=== PATIENT | female | born 1965 | race Caucasian/White ===

== ENCOUNTER → 2016-11-01 | Outpatient (CLI) | payer BC | END | disposition home or self-care (01) | LOC: NUC 08:09 | DX: R10.13 Epigastric pain (principal) | CPT/HCPCS: 78264; A9541 ==

== ENCOUNTER 2017-08-07 16:49 | Emergency (ER) | payer BC ==
[~2017-08-07] VITALS: Ht 162.6 cm; Wt 106.4 kg
[2017-08-07 18:26] LABS: HEMATOCRIT 43.3 % (36.0-46.0); HEMOGLOBIN 14.7 G/DL (11.9-15.5); MCH 28.9 PG (29.0-34.0); MCHC 33.9 G/DL (30.0-36.0); MCV 85.1 FL (83-99); PLATELET COUNT 77 K/uL (156-360); RBC DIS.WIDTH-CV 13.8 % (11.8-14.6); RBC DIS.WIDTH-SD 42.5 % (39-53); RED BLOOD COUNT 5.09 M/uL (3.80-5.20); WHITE BLOOD COUNT 3.9 K/uL (4.1-10.2)
[2017-08-07 18:40] LABS: CHLORIDE 112 mEq/L (99-109); SODIUM 141 mEq/L (136-147)
[2017-08-07 18:41] LABS: GLUCOSE 211 mg/dL (70-99)
[2017-08-07 18:45] LABS: CREATININE 0.7 mg/dL (0.6-1.3); GFR ESTIMATE (CALCULATED) > 59 mL/min/
[2017-08-07 18:46] LABS: UREA NITROGEN (BUN) 13 mg/dL (9-23)
[2017-08-07 21:01] LABS: THYROTROPIN (TSH) 0.03 MIU/L (0.4-5.5)
[2017-08-07 22:45] VITALS: BP 133/66
== END 2017-08-07 23:22 | disposition home or self-care (01) ==
LOC: EME 16:49
DX: R00.1 Bradycardia, unspecified (principal); E03.9 Hypothyroidism, unspecified; R10.9 Unspecified abdominal pain; R42 Dizziness and giddiness
CPT/HCPCS: 71046; 80048; 83735; 84439; 84443; 85027; 93005; 99281; 99283